=== PATIENT | female | born 1975 | race Caucasian/White ===

== ENCOUNTER 2024-12-01 19:44 | Emergency (ER) | payer MEDICAID, OTHER ==
[~2024-12-01] VITALS: Ht 162.6 cm; Wt 76.0 kg
[2024-12-01 20:35] VITALS: BP 108/72; PULSE 96; RESP 16; TEMP 36.8; O2SAT 100
== END 2024-12-01 20:38 | disposition left against medical advice (07) ==
LOC: ER 19:44
DX: F41.9 Anxiety disorder, unspecified (principal); Z53.21 Procedure and treatment not carried out due to patient leaving prior to being seen by health care provider